=== PATIENT | female | born 1990 | race Caucasian/White ===

== ENCOUNTER 2017-03-03 17:25 | Emergency (ER) | payer OTHER ==
[~2017-03-03] VITALS: Ht 167.6 cm; Wt 63.5 kg
--- NOTE | ~2017-03-03 | EKG ---
[place] [address] [facility] [employer] [place] [address] ELECTROCARDIOGRAM REPORT Name: DARRIN ROMERO [facility]: [facility] [id number] Admission: 03/03/17 Attend Phys: Discharge: 03/03/17 Date of : 88 Report #: [id number] THIS REPORT FOR: //name// [facility] ED Test Date: 2017-03-03 Test Time: 17:53:47 Pat Name: DARRIN ROMERO Department: Room: Gender: F [employer]ice [employer] C[employer] Operator: Neftali BREWER : 1990 Requested By: Isra Robertson Order Number: [id number] MD: Jerzy Tellez Measurements Intervals [place] Rate: 51 P: 12 LA: 139 QRS: 20 QRSD: 100 T: 13 QT: 447 QTc: 412 Interpretive Statements Sinus bradycardia Borderline ST elevation, anterior leads No previous ECG available for comparison Electronically Signed On 03-04-2017 8:51:43 CDT by Jerzy Tellez [email or web address] <ELECTRONICALLY SIGNED> By: Jerzy Tellez MD, [facility] 03/04/17 0851 1753 1753 Jerzy Tellez MD, FACC /EPI
[2017-03-03 18:09] LABS: HEMATOCRIT 36.5 % (37.0-47.0); HEMOGLOBIN 12.6 gm/dL (12.0-15.0); MCH 31.9 pg (26.0-34.0); MCHC 34.5 g/dL (28.0-37.0); MCV 92.6 fL (80.0-100.0); RBC 3.93 mil/uL (4.20-5.00); RDW 12.7 % (10.5-14.5); WBC 6.7 thou/uL (4.0-11.0)
[2017-03-03 18:10] LABS: URINE BILIRUBIN NEGATIVE (Negative); URINE BLOOD NEGATIVE (Negative); URINE COLOR YELLOW; URINE GLUCOSE-RANDOM* NEGATIVE (Negative); URINE KETONES NEGATIVE (Negative); URINE NITRITE NEGATIVE (Negative); URINE PROTEIN (DIPSTICK) TRACE (Negative)
[2017-03-03 18:18] LABS: CALCIUM 8.6 mg/dL (8.5-10.1); CREATININE 0.6 mg/dL (0.6-1.0); POTASSIUM 3.5 mmol/L (3.5-5.1)
[2017-03-03 18:23] LABS: ALBUMIN 3.8 g/dL (3.4-5.0); TOTAL BILIRUBIN 0.3 mg/dL (<0.1-1.0)
[2017-03-03 19:40] VITALS: BP 104/66
== END 2017-03-03 20:14 | disposition home or self-care (01) ==
LOC: ER 17:25
PROVIDERS: Physician Assistant
DX: R55 Syncope and collapse (principal); S00.12XA Contusion of left eyelid and periocular area, initial encounter; S00.11XA Contusion of right eyelid and periocular area, initial encounter; F17.210 Nicotine dependence, cigarettes, uncomplicated; F12.10 Cannabis abuse, uncomplicated; F10.99 Alcohol use, unspecified with unspecified alcohol-induced disorder; Y08.89XA Assault by other specified means, initial encounter; Y93.89 Activity, other specified; Y92.89 Other specified places as the place of occurrence of the external cause; Y99.8 Other external cause status